=== PATIENT | female | born 1980 | race Caucasian/White ===

== ENCOUNTER 2017-02-02 19:08 | Emergency (ER) | payer OTHER ==
[~2017-02-02] VITALS: Ht 170.2 cm; Wt 95.0 kg
[2017-02-02 19:25] VITALS: BP 157/96
[2017-02-02] MEDS ORDERED: BUPR-86 PO (20:50)
[2017-02-02] MEDS ORDERED: LIDOCAINE 1%, 20ML SQ ONE (22:00)
== END 2017-02-02 22:23 | disposition home or self-care (01) ==
LOC: ED 21:39
DX: L02.211 Cutaneous abscess of abdominal wall (principal)
CPT/HCPCS: 10060; 99283

== ENCOUNTER 2017-02-04 18:41 | Emergency (ER) | payer OTHER ==
[~2017-02-04] VITALS: Ht 170.2 cm; Wt 95.0 kg
[~2017-02-04 18:41] MED LIST: BUPR-86 PO
[2017-02-04 18:42] VITALS: BP 128/82
== END 2017-02-04 19:40 | disposition home or self-care (01) ==
LOC: ED 19:34
DX: L02.211 Cutaneous abscess of abdominal wall (principal)
CPT/HCPCS: 99283

== ENCOUNTER 2020-08-09 14:57 | Observation (INO) | payer OTHER ==
[~2020-08-09] VITALS: Ht 167.6 cm; Wt 101.8 kg
[2020-08-09] MEDS ORDERED: DIAZEPAM 5 MG/ML, 2ML IV ONE (15:30)
[2020-08-09] MEDS ORDERED: SODIUM CHLORIDE 0.9% 1,000ML IVBOLUS ONE (15:30)
[2020-08-09] MEDS ORDERED: ONDANSETRON 2MG/ML, 2ML IVPush ONE ×2 (15:30→19:30)
[2020-08-09] MEDS ORDERED: DIAZEPAM 5 MG/ML, 2ML ONE (15:54)
[2020-08-09] MEDS ORDERED: ONDANSETRON 2MG/ML, 2ML ONE ×2 (15:54→20:33)
--- NOTE | 2020-08-09 16:00 | NUR ---
PT SITTING UPRIGHT ON GURNEY WITH AT BEDSIDE. PT STATES THE [place] AND DIZZINESS IS "MUCH WORSE WITH MOVEMENT". COMFORT MEASURES PROVIDED, CALL LIGHT WITHIN REACH AND BLANKET PROVIDED.
[2020-08-09 16:10] LABS: BASOPHILS # (AUTO) 0.03 x10^3/uL (0-0.1); BASOPHILS % (AUTO) 0 % (0-1); EOSINOPHILS # (AUTO) 0.02 x10^3/uL (0-0.4); EOSINOPHILS % (AUTO) 0 % (1-7); LYMPHOCYTES # (AUTO) 0.86 x10^3/uL (1-3.4); LYMPHOCYTES % (AUTO) 11 % (22-44); MD NO; MEAN CORPUSCULAR HEMOGLOBIN 24.3 pg (27.0-34.8); MEAN CORPUSCULAR HGB CONC 30.9 g/dL (32.4-35.8); MEAN PLATELET VOLUME 8.7 fL (7.4-10.4); MONOCYTES % (AUTO) 4 % (2-9); NEUTROPHILS # (AUTO) 6.44 x10^3/uL (1.8-6.8); NEUTROPHILS % (AUTO) 84 % (42-75); PLATELET COUNT 301 x10^3/uL (130-400); RED BLOOD COUNT 4.05 x10^6/uL (3.82-5.3); RED CELL DISTRIBUTION WIDTH 17.9 % (9.6-15.2)
[2020-08-09 16:23] LABS: ALANINE AMINOTRANSFERASE 39 U/L (12-78); ALBUMIN 3.9 g/dL (3.4-5.0); ANION GAP 12 mmol/L (5-15); CALCIUM 8.6 mg/dL (8.5-10.1); CHLORIDE 109 mmol/L (98-107)
[2020-08-09 16:28] LABS: ALKALINE PHOSPHATASE 69 U/L (45-117); BILIRUBIN,TOTAL 0.3 mg/dL (0.2-1.0); CREATININE 0.89 mg/dL (0.55-1.02); TOTAL PROTEIN 7.6 g/dL (6.4-8.2)
[2020-08-09] MEDS ORDERED: METOCLOPRAMIDE 5 MG/ML, 2ML ONE (16:56)
[2020-08-09] MEDS ORDERED: METOCLOPRAMIDE 5 MG/ML, 2ML IVPush ONE (17:00)
--- NOTE | 2020-08-09 17:05 | NUR ---
PT SITTING UPRIGHT ON GURNEY, STATES THAT THE DIZZINESS AND NAUSEA HAS RETURNED AND STATES "I FELT BETTER FOR A SECOND BUT IT IS WORSE AGAIN". PT MEDICATED PER EMAR. NO ADDITIONAL NEEDS AT THIS TIME. CALL LIGHT WITHIN REACH, FALL PRECAUTIONS IN PLACE.
--- NOTE | 2020-08-09 18:02 | NUR ---
PT SUPINE ON GURNEY WITH EYES CLOSED. AT BEDSIDE. STATES "MY DIZZINESS IS A LOT BETTER WITH MY EYES CLOSED BUT I STILL FEEL DIZZY WITH MY EYES OPEN OR IF I MOVE MY HEAD". PT REPOSITIONED TO COMFORT LEVEL. PT DENIES ANY ADDITIONAL NEEDS AT THIS TIME. CALL LIGHT WITHIN REACH, FALL PRECAUTIONS IN PLACE.
[2020-08-09] MEDS ORDERED: MAGN400T36 PO (18:46)
--- NOTE | 2020-08-09 18:58 | NUR ---
BEDSIDE REPORT GIVEN TO VIN PENA RN.
--- NOTE | 2020-08-09 19:08 | NUR ---
Attempted to ambulate pt. Pt experienced vertigo and nausea. Pt unable to ambulate and placed back in bed. VS stable. No drop in BP or HR. notified.
[2020-08-09] MEDS ORDERED: DIAZEPAM 5 MG TABLET PO PRN (19:30)
[2020-08-09] MEDS ORDERED: ACETAMINOPHEN 325 MG TABLET PO PRN (19:30)
[2020-08-09] MEDS ORDERED: BISACODYL 10 MG SUPP PR PRN (19:30)
[2020-08-09] MEDS ORDERED: POLYETHYLENE GLYCOL 17 GM PACKET PO PRN (19:30)
[2020-08-09] MEDS ORDERED: ONDANSETRON 2MG/ML, 2ML IVPush PRN (19:30)
[2020-08-09] MEDS: SODIUM CHLORIDE FLUSH 10ML SYR IVF SCH (21:00)
[2020-08-09] MEDS ORDERED: MAALOX/HYOSCYAMINE/LIDOCAINE 45 ML BTL ONE (22:26)
[2020-08-09] MEDS ORDERED: MAALOX/HYOSCYAMINE/LIDOCAINE 45 ML BTL PO ONE (22:30)
--- NOTE | 2020-08-09 22:45 | NUR ---
Report given to ROGELIO Arroyo.
[2020-08-09 23:34] VITALS: BP 116/78
[2020-08-10] MEDS: FERROUS GLUCONATE 324 MG TABLET PO SCH ×5 (00:30→15:51)
[2020-08-10 01:05] VITALS: BP 112/73
[2020-08-10 05:01] LABS: ANION GAP 8 mmol/L (5-15); CALCIUM 8.5 mg/dL (8.5-10.1); CHLORIDE 111 mmol/L (98-107); CREATININE 0.66 mg/dL (0.55-1.02)
[2020-08-10 05:31] LABS: BASOPHILS # (AUTO) 0.05 x10^3/uL (0-0.1); BASOPHILS % (AUTO) 1 % (0-1); EOSINOPHILS # (AUTO) 0.01 x10^3/uL (0-0.4); EOSINOPHILS % (AUTO) 0 % (1-7); LYMPHOCYTES # (AUTO) 1.55 x10^3/uL (1-3.4); LYMPHOCYTES % (AUTO) 15 % (22-44); MD NO; MEAN CORPUSCULAR HEMOGLOBIN 24.1 pg (27.0-34.8); MEAN CORPUSCULAR HGB CONC 30.6 g/dL (32.4-35.8); MEAN PLATELET VOLUME 9.4 fL (7.4-10.4); MONOCYTES # (AUTO) 0.54 x10^3/uL (0.2-0.8); MONOCYTES % (AUTO) 5 % (2-9); NEUTROPHILS # (AUTO) 7.91 x10^3/uL (1.8-6.8); NEUTROPHILS % (AUTO) 79 % (42-75); PLATELET COUNT 290 x10^3/uL (130-400); RED BLOOD COUNT 3.97 x10^6/uL (3.82-5.3); RED CELL DISTRIBUTION WIDTH 17.2 % (9.6-15.2)
[2020-08-10] MEDS: SENNA/DOCUSATE TABLET PO SCH (07:44)
[2020-08-10] MEDS: SODIUM CHLORIDE FLUSH 10ML SYR IVF SCH ×2 (07:52→19:53)
[2020-08-10] MEDS: MAGNESIUM OXIDE 400 MG TABLET PO SCH ×2 (07:52→07:53)
[2020-08-10 08:52] VITALS: BP 120/66
[2020-08-10] MEDS ORDERED: TEMPLATE NON-FORMULARY MED. (Bupropion Hcl** (Wellbutrin Xl**) 150 MG) PO SCH ×3 (09:00→16:00)
[2020-08-10] MEDS: MECLIZINE 25 MG TABLET PO PRN ×3 (10:16→23:18)
[2020-08-10 13:38] VITALS: BP 111/65
[2020-08-10] MEDS: HEPARIN 5,000 UNITS/ML, 1ML SQ SCH ×2 (15:26→23:19)
[2020-08-10 20:28] VITALS: BP 99/64
[2020-08-11 02:52] VITALS: BP 102/68
[2020-08-11 04:51] LABS: BASOPHILS # (AUTO) 0.05 x10^3/uL (0-0.1); BASOPHILS % (AUTO) 1 % (0-1); EOSINOPHILS % (AUTO) 2 % (1-7); LYMPHOCYTES # (AUTO) 2.36 x10^3/uL (1-3.4); LYMPHOCYTES % (AUTO) 34 % (22-44); MD NO; MEAN CORPUSCULAR HEMOGLOBIN 24.3 pg (27.0-34.8); MEAN CORPUSCULAR HGB CONC 30.8 g/dL (32.4-35.8); MEAN PLATELET VOLUME 9.4 fL (7.4-10.4); MONOCYTES # (AUTO) 0.52 x10^3/uL (0.2-0.8); MONOCYTES % (AUTO) 8 % (2-9); NEUTROPHILS # (AUTO) 3.83 x10^3/uL (1.8-6.8); NEUTROPHILS % (AUTO) 56 % (42-75); PLATELET COUNT 293 x10^3/uL (130-400); RED BLOOD COUNT 3.89 x10^6/uL (3.82-5.3); RED CELL DISTRIBUTION WIDTH 17.9 % (9.6-15.2)
[2020-08-11] MEDS: HEPARIN 5,000 UNITS/ML, 1ML SQ SCH (06:17)
[2020-08-11 07:08] VITALS: BP 107/66
[2020-08-11] MEDS: FERROUS GLUCONATE 324 MG TABLET PO SCH ×3 (07:47→11:39)
[2020-08-11] MEDS: MAGNESIUM OXIDE 400 MG TABLET PO SCH ×2 (07:47→08:00)
[2020-08-11] MEDS: MECLIZINE 25 MG TABLET PO PRN (07:48)
[2020-08-11] MEDS: SENNA/DOCUSATE TABLET PO SCH (07:48)
[2020-08-11] MEDS: SODIUM CHLORIDE FLUSH 10ML SYR IVF SCH (07:51)
[2020-08-11] MEDS ORDERED: MECL-101 PO (09:11)
[2020-08-11] MEDS ORDERED: PRED20TA PO (10:21)
[2020-08-11] MEDS ORDERED: FLU VACC QS2020-21(6MOS UP)/PF 60MCG/0.5 ML SYR IM-VACC ONE (12:00)
== END 2020-08-11 12:25 | disposition home or self-care (01) ==
LOC: ED 18:31 → INTOOBSV 19:13 → EDIP 19:13 → 4WST 23:02 → DCLOUNGE 08-11 12:19
PROVIDERS: ADMIT Family Medicine; ATTEND Hospitalist
DX: H81.10 Benign paroxysmal vertigo, unspecified ear (principal); R11.2 Nausea with vomiting, unspecified; D50.9 Iron deficiency anemia, unspecified; F32.9 Major depressive disorder, single episode, unspecified; E66.9 Obesity, unspecified; Z79.899 Other long term (current) drug therapy; Z23 Encounter for immunization
CPT/HCPCS: 36415; 70450; 70551; 80048; 80053; 82728; 83540; 83550; 83735; 84703; 85025; 90471; 90686; 93005; 96361; 96372; 96374; 96375; 96376; 97116; 97162; 97530; 99285; G0378; J1644; J2405; J2765; J3360; J7030; J7512